=== PATIENT | male | born 1965 | race Caucasian/White ===

== ENCOUNTER 2023-02-24 13:48 | Outpatient (CLI) | payer OTHER, SELFPAY ==
--- NOTE | 2023-02-24 13:55 | MRR_ITS ---
PROCEDURE INFORMATION: Exam: MR Right Lower Extremity Without Contrast, tibia/fibula Exam date and time: 02/24/2023 2:41 PM Age: 57 years old Clinical indication: Pain; Lower leg; Right; Additional info: Osteochondroma of tibia TECHNIQUE: Imaging protocol: Magnetic resonance imaging of the right femur without contrast. COMPARISON: No relevant prior studies available. FINDINGS: Bones/joints: Osteochondroma off the lateral aspect of the proximal tibial metaphysis measures 5.3 x 5.5 x 3.5 cm in the craniocaudad/AP/transverse dimensions. Osteochondroma arising from the medial aspect of the proximal fibular metaphysis measures 3.2 x 1.4 x 2.3 cm in the craniocaudad/AP/transverse dimensions. Soft tissues: Minimal soft tissue edema. MR/MR lower leg RT wo con* [id number] IMPRESSION: 1. 5.5 cm osteochondral off the lateral aspect of the proximal tibial metaphysis. 2. 3.2 cm osteo chondroma arises from the medial aspect of the proximal fibular diaphysis.
== END 2023-02-24 13:49 | disposition home or self-care (01) ==
LOC: RAD 13:49
PROVIDERS: PCP Family Medicine; Visit Provider Family Medicine
DX: D16.21 Benign neoplasm of long bones of right lower limb (principal)
CPT/HCPCS: 73718; 73720